=== PATIENT | female | born 1980 | race Native Hawaiian/Other Pacific Islander ===

== ENCOUNTER 2017-06-19 08:43 | Outpatient (CLI) | payer OTHER | END 2017-06-19 22:12 | disposition home or self-care (01) | LOC: US 08:43 | DX: R10.11 Right upper quadrant pain (principal) ==

== ENCOUNTER 2018-02-16 12:30 | Outpatient (CLI) | payer OTHER | END 2018-02-16 23:53 | disposition home or self-care (01) | LOC: NM 12:30 | DX: R10.11 Right upper quadrant pain (principal) | CPT/HCPCS: A9537 ==

== ENCOUNTER 2018-08-27 14:04 | Emergency (ER) | payer OTHER ==
[~2018-08-27] VITALS: Ht 162.6 cm; Wt 124.7 kg
[2018-08-27 14:23] VITALS: TEMP 97.9
[2018-08-27 15:26] LABS: PLATELET COUNT 274 K/uL (152-353)
[2018-08-27 15:37] LABS: POTASSIUM 3.9 mmol/L (3.6-5.2)
[2018-08-27 18:13] VITALS: BP 141/88
== END 2018-08-27 18:13 | disposition home or self-care (01) ==
LOC: ED 14:04
PROVIDERS: Emergency Medicine
DX: R10.31 Right lower quadrant pain (principal)
CPT/HCPCS: 36415; 80053; 81000; 81025; 85027; 96374; 99284; J1885; Q9963